=== PATIENT | male | born 1995 | race Caucasian/White ===

== ENCOUNTER 2020-10-31 22:13 | Emergency (ER) | payer SELFPAY ==
[~2020-10-31] VITALS: Ht 172.7 cm; Wt 72.6 kg
[2020-10-31 22:20] VITALS: BP_SYST 106; BP_SYST 128; BP_DIAS 78; BP_DIAS 81
--- NOTE | 2020-10-31 22:23 | NUR ---
TO LOBBY A/W BED AMBULATORY
[2020-10-31] MEDS ORDERED: ALUMINUM HYD/MAG/SIMETHICONE 30 ML UDC PO ONE (22:25)
[2020-10-31] MEDS ORDERED: FAMOTIDINE 20 MG TAB PO ONE (22:25)
--- NOTE | 2020-10-31 22:30 | NUR ---
MEDICATED PER ERMDS ORDER, TOLERATED WELL.
--- NOTE | 2020-11-01 00:01 | NUR ---
PT AMBULATED CHAIR C
== END 2020-11-01 00:47 | disposition left against medical advice (07) ==
LOC: MED 22:13
DX: R10.32 Left lower quadrant pain (principal); R30.9 Painful micturition, unspecified; Z53.21 Procedure and treatment not carried out due to patient leaving prior to being seen by health care provider

== ENCOUNTER 2020-12-04 15:53 | Emergency (ER) | payer SELFPAY ==
[~2020-12-04] VITALS: Ht 165.1 cm; Wt 74.8 kg
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
[2020-12-04 16:00] VITALS: BP 130/78
--- NOTE | 2020-12-04 16:04 | NUR ---
PT AMBULATED TO BED
[2020-12-04] MEDS ORDERED: NACL 0.9% 1,000 ML IV ONE (16:20)
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
--- NOTE | 2020-12-04 16:26 | NUR ---
PER ERMD 12 LEAD WAS DONE ON PT AND CAME BACK SINUS TACHY CARDIA AT 116 HR.
--- NOTE | 2020-12-04 16:31 | NUR ---
Homer abdi in ED - 12/04/20 at [email or web address] SNYDER AT BEDSIDE EVALUATING PT
--- NOTE | 2020-12-04 16:31 | NUR ---
[facility] SNYDER AT BEDSIDE EVALUATING PT
--- NOTE | 2020-12-04 16:40 | NUR ---
[place] [employer] AT BEDSIDE
--- NOTE | 2020-12-04 17:02 | NUR ---
PT AMBULATED TO RESTROOM FOR URINE SAMPLE
[2020-12-04 17:36] LABS: BARBITURATE, URINE NEGATIVE ng/ml (NEG <=200); BENZODIAZEPINE, URINE NEGATIVE ng/mL (NEG <=200); CANNABINOID, URINE NEGATIVE ng/mL (NEG <=50); COCAINE, URINE NEGATIVE ng/mL (NEG <=300); OPIATE, URINE NEGATIVE ng/mL (NEG <=2000); PHENCYCLIDINE SCREEN,URINE NEGATIVE ng/mL (NEG <=25)
[2020-12-04 18:03] VITALS: BP 146/88
--- NOTE | 2020-12-04 18:15 | NUR ---
PATIENT ELOPED FROM FACILITY. DISCHARGE INSTRUCTIONS NOT GIVEN TO PATIENT. SOREN SNYDER NOTIFIED.
--- NOTE | 2020-12-04 18:15 | NUR ---
PT BECAME VERY AGITATED AND AGGRESSIVE, STATING THAT HE NEEDED TO LEAVE RIGHT AWAY. PTS IV REMOVED. SOREN SNYDER MADE AWARE
[2020-12-04] MEDS ORDERED: IBUP-2213 PO (18:16)
[2020-12-04] MEDS ORDERED: AMOX-999 PO (18:16)
--- NOTE | 2020-12-07 10:48 | NUR ---
LATE ENTRY- IV FLUIDS SODIUM CHLORIDE DISCONTINUED AT 1814.
== END 2020-12-04 18:15 | disposition left against medical advice (07) ==
LOC: MED 15:53
DX: R07.9 Chest pain, unspecified (principal); F15.10 Other stimulant abuse, uncomplicated; L03.114 Cellulitis of left upper limb; F17.210 Nicotine dependence, cigarettes, uncomplicated
CPT/HCPCS: 71045; 73130; 80305; 93005; 99285; J7030; Q0092